=== PATIENT | male | born 1965 | race Caucasian/White ===

== ENCOUNTER → 2020-09-29 09:59 | Outpatient (CLI) | payer OTHER, SELFPAY ==
[2020-09-29 11:08] LABS: COVID19 -Nasal RAPID Negative (Negative)
== END ==
PROVIDERS: Visit Provider Nurse Practitioner
DX: Z20.822 Contact with and (suspected) exposure to COVID-19 (principal)
CPT/HCPCS: 87635

== ENCOUNTER 2020-10-01 12:28 | Day surgery (SDC) | payer OTHER, SELFPAY ==
[2020-09-30 08:17] VITALS: BMI 23.1
[2020-10-01] VITALS (8 sets, daily range): BP systolic 124–146; BP diastolic 78–99; PULSE 82–106; RESP 12–18; TEMP 36.8–37.3; O2SAT 97–98; BMI 23.1
[2020-10-01] MEDS: LACTATED RINGERS 1,000 ML 100 ML IV ×2 (13:12→16:25)
--- NOTE | 2020-10-01 14:41 | PM.PREOP ---
Pre-operative Note COVID-19 COVID-19 status: Negative Interval Note History & Physical reviewed/Exam performed by Physician: Yes Changes to H&P: No
--- NOTE | 2020-10-01 14:42 | PM.PREOP ---
Pre-operative Note COVID-19 COVID-19 status: Negative Interval Note History & Physical reviewed/Exam performed by Physician: Yes Changes to H&P: No
--- NOTE | 2020-10-01 14:57 | P.OP_ITS ---
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 He has failed conservative treatment. He has been indicated for 1st MTP arthrodesis and correction of crossover toe. The risks and benefits of the procedure have been discussed with the patient even opportunity to ask questions. The risks of surgery include but are not limited to infection, malunion, nonunion, persistence of pain, damage to nerves and blood vessels, posttraumatic arthritis, DVT, PE, cardiopulmonary complications and . The patient expressed a thorough understanding of the risks and benefits of surgery and has elected to proceed. Consent was signed in the office. Surgeon: Jo Lopes Click Yes if Unassisted: Yes Anesthesia Type: General and Local Operative Notes Closure Type: primary Specimen(s): none sent Prosthetic devices, grafts, tissues, transplants, or devices: Arthrex 1st MTP plate right small plate. 3-0 headed cannulated lag screw. 3-0 locking and nonlocking screws in the plate Estimated Blood Loss (mL): 20 Blood products transfused: none Tourniquet time (min): 60 Procedure in detail: The patient was seen in the preoperative area the site of surgery marked informed consent confirmed. The patient back to the operating room with the anesthesia team and placed in a supine position. All bony prominences well padded. Well-padded thigh tourniquet was placed. An SCD was placed on the contralateral lower extremity. The right lower extremities prepped and draped in the standard sterile fashion. A formal time-out procedure was performed confirming the patient's side and site of surgery administration of preoperative IV antibiotics and presence of informed consent. All were in agreement. Esmarch was exsanguinated on the leg and the tourniquet was elevated to 250 mm of mercury and stayed there for 60 minutes. Attention was turned to the right great toe there was a large bunion deformity with limited range of motion approximately 30 degree arc. There was also a crossover 2nd toe with loading. Extensor tendoncontracture but no hammertoe and the PIP. curved incision was taken over the 1st MTP joint and just medial to the extensor hallucis longus this was taken down through the skin. Extensor hallux longus was retracted medially and the capsule and extensor hallucis brevis were transected longitudinally and reflected medial and laterally to expose the joint. Capsule was released medial and laterally. The joint was noted to have significant cartilage thinning and full-thickness loss down towards the plantar aspect. Osteophytes were removed using the rongeur. There was a large medial eminence that was resecting using the saw. Next a K-wire for the cone and cup reamers was advanced into the metatarsal a 22 mm Reamer was used followed by the male Reamer on the proximal phalanx. Any remaining cartilage removed with a rongeur. A 2 mm drill was used to fenestrate to the articular surfaces to create bleeding at the fusion sites. Next the joint was compressed and pinned with temporary K-wire fixation. This was checked on fluoroscopy and against the flat plate to provide satisfactory alignment with just about 2 mm of clearance The [place] elevator. Next a guidewire for the 3-0 cannulated screw was advanced from proximal medial to distal lateral this was checked on fluoroscopy then measured for a 24 mm screw. This is over over drilled and then the screw was placed. This provided excellent compression. Next a small plate was fit to the fracture site. The plate Benders were used to decrease the dorsal flexion pin anna in this just a touch. Next is was secured with BB tacks and then a locking screw was placed distally followed by a nonlocking screw proximally compressing the plate to the bone. Then locking screws were filled in the remaining holes. Final radiographs were taken AP lateral planes confirming appropriate alignment compression and hardware length. Next attention was turned to the 2nd toe a a separate incision was made at the just lateral to the extensor taken since for the 2nd toe at the level of the MTP joint. This was taken through the subcutaneous tissues. Extensor tendon was Z-lengthened. capsulotomy was made. The MTP joint was exposed cartilage was intact. It was noted immediately after extensor tendon lengthening and capsulotomy that the toe did lie in a normal the alignment. Alignment. The MTP joint was distracted slightly plantar plate was visualized intact. And the patient had not had any symptoms of metatarsalgia so at this point toe alignment had improved. The extensor tendon was repaired in its lengthened position using 4 0 Vicryl suture maintaining the improved corrected position of the toe. Next the wounds were irrigated. They were closed after the tourniquet was released. Hemostasis was achieved. 4-0 Vicryl and 4-0 Monocryl used in the subcutaneous tissues. 4-0 nylon was used in the skin. Sterile dressings were placed with Xeroform gauze [place] wrap of Webril and an Terrence wrap. The gauze and [place] were used to put slight plantar flexion side tension on the 2nd toe to help it heal in its reduced position. It was not felt that any wire fixation was required for this. Patient was placed into the postoperative shoe drapes removed patient was woken from anesthesia and taken to recovery unit in good condition. There no immediate complications from this procedure. All counts were correct Complications: none Post-operative Condition: stable Disposition: PACU Plan for aftercare: may be heel weight-bearing in the postop shoe for minimal ambulation. Follow up in 2 weeks for wound check. Keep dressing in place.
[2020-10-01] MEDS: CEFAZOLIN 2 GM/100 ML FROZ.PIGGY IV (14:58)
--- NOTE | 2020-10-01 14:59 | SUR.OPER ---
Supine on padded OR bed, head on pillow, arms secured on padded arm boards at <90 degrees abduction, legs uncrossed, safety belt at abdomen, tape over blanket over nonoperative leg.
[2020-10-01] MEDS: BUPIVACAINE 0.5% W/ EPI (PF) 30 ML VIAL INJ (15:31)
[2020-10-01] MEDS: OXYCODONE IR 5 MG TABLET PO (16:50)
== END 2020-10-01 17:30 | disposition home or self-care (01) ==
PROVIDERS: PCP Family Medicine; Referring Provider Family Medicine; Visit Provider Orthopaedic Surgery Foot and Ankle Surgery
PROC: (CPT 28750; principal; 2020-10-01 13:45)
PROC: (CPT 27691; 2020-10-01 13:45)
DX: M19.071 Primary osteoarthritis, right ankle and foot (principal); M21.611 Bunion of right foot; M20.41 Other hammer toe(s) (acquired), right foot; I10 Essential (primary) hypertension; I48.91 Unspecified atrial fibrillation
CPT/HCPCS: 28750; 28292; 28270; J0690; J1100; J2250; J2405; J2704; J3010